=== PATIENT | female | born 1955 | race Caucasian/White ===

== ENCOUNTER 2016-10-10 02:16 | Observation (INO) ==
[2016-10-10] MEDS ORDERED: *HR* Dextrose 50 % in Water (Vial) 50 ML VIAL IVP ONE (02:22)
--- NOTE | 2016-10-10 02:36 | Emergency Department Note ---
Disposition Clinical Impression: Acute metabolic encephalopathy due to hypoglycemia Urinary tract infection Qualifiers: Urinary tract infection type: acute cystitis Hematuria presence: without hematuria Qualified Code(s): N30.00 - Acute cystitis without hematuria Disposition: Home, Self-Care Condition: Good Instructions: Urinary Tract Infection in Women (ED), Diabetic Hypoglycemia (ED) Reasons to Return/Additional Instructions: Follow-up with your primary care provider on Wednesday as discussed. Return to the ED for any new worsening or recurrent symptoms. Blood pressure screening: When you had your blood pressure taken, if the top number was greater than 120 or the bottom number was greater than 80, I discussed and recommended that you call your primary care provider or a physician of your choice this week to arrange follow-up for further evaluation of your blood pressure. Elevated blood pressures which go untreated can lead to stroke, heart attack, kidney failure, and other life-threatening diseases. This is a screening exam and recommednations are to follow with your family physician. (We discussed why the elevation could be occurring at this time. If you have had an EKG and/or x-ray performed in the emergency department, it will be reviewed by the loom doffer and/or radiologist. If the review changes your diagnosis or treatment you will be contacted at the phone number you provided. Prescribed outpatient testing: Please call to schedule an appointment for the test that was ordered on the form provided. If you have been prescribed an antibiotic: Take it as instructed until it is all finished. If you cannot tolerate that medication for some reason, call your physician for replacement. If you had a specimen collected for a culture: A culture report takes 48-72 hours to generate. You will be contacted if a change in treatment is needed. Return to the ED immediately if your condition worsens or if you have severe pain, fever, vomiting, or difficulty breathing or any other concerns. If you received or were prescribed a medication that may cause drowsiness ( Including Tramadol, Phenergan, Diazepam, Lorazepam, Hydroxyzine, Xanax, Hydrocodone, Oxycodone, Codeine, etc) DO NOT drive, drink alcohol, or operate machinery that requires you to be alert for at least 8 hours after taking that medication. If you smoke or chew tobacco products: discuss with your family physician options to help in the cessation in the use of tobacco products. If you do not have a physician: Go to [email or web address] or call [facility]: [phone] [facility]: [phone] [facility]: [phone] Prescriptions: Nitrofurantoin Monohyd/M-Cryst [Macrobid 100 mg Capsule] 100 mg PO BID #14 capsule Referrals: Kim Amin, MIKI [Primary Care Provider] - Forms: ED Satisfaction Letter Time of Disposition: 04:55 Altered Mental Status HPI - General Chief Complaint: ED Altered Mental Status Stated Complaint: AMS Time Seen by Provider: 10/10/16 02:21 Source: patient, family, other (Paramedics) Mode of arrival: EMS - History of Present Illness HPI Narrative: Patient presents to the emergency department secondary to reported mental status change. states that she woke up and advised him that she was not feeling well for her speech was somewhat garbled and she appeared confused. EMS was contacted and upon their arrival the patient's blood sugar was in the 20s, the patient has received oral glucose in route and upon presentation her glucose was 30. She is alert oriented to person place and time. She denies pain or discomfort. She states that she may have not eaten much over the past day though she has recently completed treatment for multiple myeloma and is also recently underwent cardiac stent placement and she states her appetite is starting to improve to some degree. 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 She denies recent medication changes. She denies vomiting or diarrhea. She denies fever or chills. Denies headache or neck pain. Denies abdominal pain. Denies urinary changes. - Related Data Home Medications Medication Instructions Recorded Confirmed Glimepiride [Amaryl] 4 mg PO BID 02/09/15 10/10/16 Gabapentin [Neurontin] 300 mg PO BID 04/07/16 10/10/16 Melatonin [Melatin] 3 mg PO HS PRN 04/07/16 10/10/16 Acyclovir [Zovirax] 400 mg PO BID 08/24/16 10/10/16 Furosemide [Lasix] 40 mg PO QAM 09/27/16 10/10/16 Loperamide [Imodium] 2 mg PO Q4HR PRN MDD 8 TABLETS 09/27/16 10/10/16 Metformin HCl [Glucophage] 1,000 mg PO BID 09/27/16 10/10/16 Ondansetron HCl [Zofran] 4 mg PO Q6H PRN 09/27/16 10/10/16 Previous Rx's Medication Instructions Recorded Apixaban [Eliquis] 5 mg PO BID #60 tab 10/01/16 Aspirin 81 mg PO DAILY #30 tab.chew 10/01/16 Atorvastatin [Lipitor] 80 mg PO HS #60 tablet 10/01/16 Clopidogrel [Plavix] 75 mg PO DAILY #30 tab 10/01/16 Lisinopril [Zestril] 2.5 mg PO DAILY #30 tab 10/01/16 Magnesium 400 mg PO DAILY #60 tablet 10/01/16 Metoprolol XL (24 HR) Succ [Toprol 100 mg PO DAILY #60 tab 10/01/16 XL] Potassium Chloride 20 meq PO BID #60 tab.er.prt 10/01/16 Calcium Carbonate [Calcium] 600 mg PO BID #60 tablet 10/08/16 Calcium Carbonate [Tums] 1 tab PO TID #90 tab.chew 10/08/16 Magnesium Oxide [Magnesium] 400 mg PO TID #90 tablet 10/08/16 Nitrofurantoin Monohyd/M-Cryst 100 mg PO BID #14 capsule 10/10/16 [Macrobid 100 mg Capsule] Allergies Allergy/AdvReac Type Severity Reaction Status Date / Time No Known Allergies Allergy Verified 10/10/16 02:18 Constitutional: Denies: fever Eyes: Denies: vision change ENT ED: Denies: throat pain, dysphagia Cardiovascular: Denies: chest pain, palpitations, dyspnea on exertion, orthopnea , edema Respiratory: Denies: cough Gastrointestinal: Denies: abdominal pain, nausea, vomiting, diarrhea, melena, hematochezia Genitourinary: Denies: urgency, dysuria, frequency Musculoskeletal: Denies: back pain, neck pain Integumentary: Denies: rash Neurological: Denies: headache, weakness, numbness, paresthesias Past Medical History - Past Medical History Medical history: Reports: cancer, coronary artery disease, diabetes, hypertension Surgical history: Reports: other (Recent stem cell transplant for multiple myeloma), arthroscopy Psychiatric history: Reports: anxiety, depression DISPLAY MAKER history: Reports: bilateral tubal ligation - Social History Smoking Status: Current every day smoker Smokeless Tobacco Status: No Alcohol use: Reports: none Drug use: Reports: none Physical Exam - General Limitations: no limitations General appearance: alert, in no apparent distress - Eye Eye exam: Present: normal appearance, PERRL, EOMI. Absent: scleral icterus, conjunctival injection - ENT ENT exam: mucous membranes dry, TM's normal bilaterally - Neck Neck exam: Present: full ROM. Absent: meningismus - Respiratory Respiratory exam: Present: normal lung sounds bilaterally - Cardiovascular Cardiovascular exam: Present: regular rate, normal rhythm, normal heart sounds - Abdominal Exam Abdominal exam: Present: soft, Non-Tender, normal bowel sounds - Extremities Exam Extremities exam: Present: full ROM. Absent: pedal edema, calf tenderness - Expanded Lower Extremity Exam Neurovascular/Tendon exam: Present: normal capillary refill. Absent: pulse deficit - Neurological Exam Neurological exam: Present: alert, oriented X3, CN II-XII intact. Absent: motor sensory deficit - Psychiatric Psychiatric exam: Present: normal affect, normal mood - Skin Skin exam: Present: warm, dry, intact, normal color. Absent: rash Course Vital Signs Temperature 97.6 F 10/10/16 02:25 Pulse Rate 101 10/10/16 02:25 Respiratory Rate 20 10/10/16 02:25 Blood Pressure 108/52 10/10/16 02:25 O2 Sat by Pulse Oximetry 96 10/10/16 02:25 Temperature 97.6 F 10/10/16 02:25 Pulse Rate 89 10/10/16 04:35 Respiratory Rate 18 10/10/16 04:35 Blood Pressure 137/79 10/10/16 04:35 O2 Sat by Pulse Oximetry 98 10/10/16 04:35 Oxygen Delivery Oxygen Delivery Room Air Altered Mental Status - MDM Narrative Medical decision making narrative: Time 4:50 AM: Patient received one amp of D50 upon arrival, she is been monitored for 2-1/2 hours and her blood sugar has remained stable at greater than 140. She is tolerating by mouth quite well. She is asymptomatic at this time. I have discussed her care with her family who is quite well versed in her medical history and very attentive. They relate that the patient had her Amaryl and Glucophage increased when she was undergoing chemotherapy and subsequently taking steroids. These medications had not been decreased. Patient's laboratory evaluation is stable, as is her radiographic findings. She has a normal neurologic exam. Family will be staying with her and is quite competent to monitor her blood sugar and her by mouth intake. At this point they are going to hold her diabetic medications for the next 24 hours and closely monitor her blood sugar and reinitiate treatment if her blood sugar increases. They will then contact the primary care provider on Wednesday to discuss ongoing treatment of her diabetes. - Lab Data Lab results reviewed: Yes I reviewed the patient's lab results. Result diagrams: 10/10/16 02:55 10/10/16 02:55 Lab Results 10/10/16 10/10/16 10/10/16 Range/Units 02:20 02:55 02:55 WBC (4.3-11.1) K/mcL RBC (3.82-4.97) M/mcL Hgb (11.5-15.4) g/dL Hct (35.3-44.9) % MCV (83.0-100.0) fL MCH (28.0-33.3) pg MCHC (31.6-35.5) g/dL RDW (11.5-14.5) % Plt Count (140-400) K/mcL MPV (9.4-12.4) fL Immature Gran % (0-4) % Seg Neutrophils % % Lymphocytes % % Monocytes % % Eosinophils % % Basophils % % Neutrophils # (1.6-8.9) K/mcL Lymphocytes # (0.6-4.6) K/mcL Monocytes # (0.0-1.3) K/mcL Eosinophils # (0.0-0.6) K/mcL Basophils # (0.0-0.2) K/mcL PT 12.5 H (9.4-12.1) Seconds INR 1.2 APTT 36.2 H (26.0-36.0) Seconds Sodium (136-145) mEq/L Potassium (3.5-4.5) mEq/L Chloride (98-109) mEq/L Carbon Dioxide (19-29) mEq/L BUN (7-20) mg/dL Creatinine (0.57-1.11) mg/dL Est GFR ( Amer) (> 60) Est GFR (Non-Af Amer) (> 60) BUN/Creatinine Ratio (6-26) Glucose (70-99) mg/dL POC Glucose 41 L* (58-89) Calculated Osmolality (280-300) Calcium (8.6-10.8) mg/dL Magnesium (1.6-2.6) mg/dL Total Bilirubin 0.3 (0.2-1.2) mg/dL Direct Bilirubin 0.1 (0.0-0.5) mg/dL Indirect Bilirubin 0.2 (0.0-1.2) mg/dL AST 23 (5-34) Units/L ALT 13 (0-55) Units/L Alkaline Phosphatase 84 (38-126) Units/L Troponin I (0-0.03) ng/mL Serum Total Protein 5.6 L (6.0-8.3) g/dL Albumin 2.6 L (3.5-5.0) g/dL Globulin 3.0 (2.4-3.5) g/dL Albumin/Globulin Ratio 0.9 L (1.1-2.2) Lipase 38 (8-78) Units/L Urine Color (Yellow) Urine Clarity (Clear) Urine pH (5.0-8.0) pH Units Ur Specific [place] (1.010-1.025) Urine Protein (Neg-Trace) mg/dL Urine Glucose (UA) (Normal) mg/dL Urine Ketones (Negative) mg/dL Urine Blood (Negative) Urine Nitrite (Negative) Urine Bilirubin (Negative) Urine Urobilinogen (Normal) mg/dL Ur Leukocyte Esterase (Negative) Urine Microscopic RBC (0-3) per hpf Urine Microscopic WBC (0-3) per hpf Ur Squamous Epith Cells (None-Few) per lpf Urine Bacteria (None-Few) per hpf Ur Culture Indicated? (NO) 10/10/16 10/10/16 10/10/16 Range/Units 02:55 02:55 02:55 WBC 10.2 D (4.3-11.1) K/mcL RBC 2.90 L (3.82-4.97) M/mcL Hgb 9.6 L (11.5-15.4) g/dL Hct 27.7 L (35.3-44.9) % MCV 95.5 (83.0-100.0) fL MCH 33.1 (28.0-33.3) pg MCHC 34.7 (31.6-35.5) g/dL RDW 19.3 H (11.5-14.5) % Plt Count 155 (140-400) K/mcL MPV 9.7 (9.4-12.4) fL Immature Gran % 0.5 (0-4) % Seg Neutrophils % 89.9 % Lymphocytes % 2.6 % Monocytes % 6.7 % Eosinophils % 0.2 % Basophils % 0.1 % Neutrophils # 9.2 H (1.6-8.9) K/mcL Lymphocytes # 0.3 L (0.6-4.6) K/mcL Monocytes # 0.7 (0.0-1.3) K/mcL Eosinophils # 0.0 (0.0-0.6) K/mcL Basophils # 0.0 (0.0-0.2) K/mcL PT (9.4-12.1) Seconds INR APTT (26.0-36.0) Seconds Sodium 136 (136-145) mEq/L Potassium 3.5 (3.5-4.5) mEq/L Chloride 103 (98-109) mEq/L Carbon Dioxide 21 (19-29) mEq/L BUN 12 (7-20) mg/dL Creatinine 0.63 (0.57-1.11) mg/dL Est GFR ( Amer) > 60 (> 60) Est GFR (Non-Af Amer) > 60 (> 60) BUN/Creatinine Ratio 19 (6-26) Glucose 143 H (70-99) mg/dL POC Glucose (58-89) Calculated Osmolality 284 (280-300) Calcium 9.7 (8.6-10.8) mg/dL Magnesium (1.6-2.6) mg/dL Total Bilirubin (0.2-1.2) mg/dL Direct Bilirubin (0.0-0.5) mg/dL Indirect Bilirubin (0.0-1.2) mg/dL AST (5-34) Units/L ALT (0-55) Units/L Alkaline Phosphatase (38-126) Units/L Troponin I 0.02 (0-0.03) ng/mL Serum Total Protein (6.0-8.3) g/dL Albumin (3.5-5.0) g/dL Globulin (2.4-3.5) g/dL Albumin/Globulin Ratio (1.1-2.2) Lipase (8-78) Units/L Urine Color (Yellow) Urine Clarity (Clear) Urine pH (5.0-8.0) pH Units Ur Specific [place] (1.010-1.025) Urine Protein (Neg-Trace) mg/dL Urine Glucose (UA) (Normal) mg/dL Urine Ketones (Negative) mg/dL Urine Blood (Negative) Urine Nitrite (Negative) Urine Bilirubin (Negative) Urine Urobilinogen (Normal) mg/dL Ur Leukocyte Esterase (Negative) Urine Microscopic RBC (0-3) per hpf Urine Microscopic WBC (0-3) per hpf Ur Squamous Epith Cells (None-Few) per lpf Urine Bacteria (None-Few) per hpf Ur Culture Indicated? (NO) 10/10/16 10/10/16 Range/Units 02:55 04:25 WBC (4.3-11.1) K/mcL RBC (3.82-4.97) M/mcL Hgb (11.5-15.4) g/dL Hct (35.3-44.9) % MCV (83.0-100.0) fL MCH (28.0-33.3) pg MCHC (31.6-35.5) g/dL RDW (11.5-14.5) % Plt Count (140-400) K/mcL MPV (9.4-12.4) fL Immature Gran % (0-4) % Seg Neutrophils % % Lymphocytes % % Monocytes % % Eosinophils % % Basophils % % Neutrophils # (1.6-8.9) K/mcL Lymphocytes # (0.6-4.6) K/mcL Monocytes # (0.0-1.3) K/mcL Eosinophils # (0.0-0.6) K/mcL Basophils # (0.0-0.2) K/mcL PT (9.4-12.1) Seconds INR APTT (26.0-36.0) Seconds Sodium (136-145) mEq/L Potassium (3.5-4.5) mEq/L Chloride (98-109) mEq/L Carbon Dioxide (19-29) mEq/L BUN (7-20) mg/dL Creatinine (0.57-1.11) mg/dL Est GFR ( Amer) (> 60) Est GFR (Non-Af Amer) (> 60) BUN/Creatinine Ratio (6-26) Glucose (70-99) mg/dL POC Glucose (58-89) Calculated Osmolality (280-300) Calcium (8.6-10.8) mg/dL Magnesium 1.0 L (1.6-2.6) mg/dL Total Bilirubin (0.2-1.2) mg/dL Direct Bilirubin (0.0-0.5) mg/dL Indirect Bilirubin (0.0-1.2) mg/dL AST (5-34) Units/L ALT (0-55) Units/L Alkaline Phosphatase (38-126) Units/L Troponin I (0-0.03) ng/mL Serum Total Protein (6.0-8.3) g/dL Albumin (3.5-5.0) g/dL Globulin (2.4-3.5) g/dL Albumin/Globulin Ratio (1.1-2.2) Lipase (8-78) Units/L Urine Color Yellow (Yellow) Urine Clarity Slightly Cloudy A (Clear) Urine pH 6.0 (5.0-8.0) pH Units Ur Specific [place] 1.015 (1.010-1.025) Urine Protein 100 H (Neg-Trace) mg/dL Urine Glucose (UA) Normal (Normal) mg/dL Urine Ketones Negative (Negative) mg/dL Urine Blood Small H (Negative) Urine Nitrite Negative (Negative) Urine Bilirubin Negative (Negative) Urine Urobilinogen Normal (Normal) mg/dL Ur Leukocyte Esterase Small H (Negative) Urine Microscopic RBC 0-3 (0-3) per hpf Urine Microscopic WBC 30-50 H (0-3) per hpf Ur Squamous Epith Cells Few (None-Few) per lpf Urine Bacteria Few (None-Few) per hpf Ur Culture Indicated? YES A (NO) ITS Impressions Chest X-Ray 10/10/16 02:21 IMPRESSION: No acute cardiopulmonary disease. D/ / Vaughn Eduardo MD / Vaughn Eduardo MD Interpreting Provider: Vaughn Eduardo MD Head CT 10/10/16 02:38 IMPRESSION: No acute intracranial abnormality. Right falcine meningioma. D/ / Ajay Alvarez MD / Ajay Alvarez MD Interpreting Provider: Ajay Alvarez MD - Radiology Data Radiology results reviewed: Yes I reviewed the patient's radiology results. - EKG Data EKG attestation: Yes I reviewed and interpreted this EKG. EKG shows normal: sinus rhythm (Normal sinus rhythm with a rate of 99. Nonspecific changes without evidence of acute ST segment or T-wave changes.) TPA Checklist - LKW: 3-4.5 hrs Add. Warnings/Precautions Patient/family understanding: The patient/family members have been counseled and understood the risk, benefit , and alternatives of treatment.
[2016-10-10 03:05] LABS: Basophils % 0.1 %; Eosinophils % 0.2 %; Hematocrit 27.7 % (35.3-44.9); Hemoglobin 9.6 g/dL (11.5-15.4); Immature Granulocytes % 0.5 % (0-4); Lymphocytes # 0.3 K/mcL (0.6-4.6); Lymphocytes % 2.6 %; Mean Corpuscular HGB Conc 34.7 g/dL (31.6-35.5); Mean Corpuscular Hemoglobin 33.1 pg (28.0-33.3); Mean Corpuscular Volume 95.5 fL (83.0-100.0); Mean Platelet Volume 9.7 fL (9.4-12.4); Monocytes # 0.7 K/mcL (0.0-1.3); Monocytes % 6.7 %; Neutrophils # 9.2 K/mcL (1.6-8.9); Platelet Count 155 K/mcL (140-400); Red Cell Distribution Width 19.3 % (11.5-14.5); Segmented Neutrophils % 89.9 %
[2016-10-10 03:09] LABS: INR 1.2; Prothrombin Time 12.5 Seconds (9.4-12.1)
[2016-10-10 03:11] LABS: Activated Partial Thrombo Time 36.2 Seconds (26.0-36.0)
[2016-10-10 03:19] LABS: BUN/Creatinine Ratio 19 (6-26); Blood Urea Nitrogen 12 mg/dL (7-20); Calcium 9.7 mg/dL (8.6-10.8); Carbon Dioxide 21 mEq/L (19-29); Chloride 103 mEq/L (98-109); Glucose 143 mg/dL (70-99); Osmolality,Calculated 284 (280-300); Potassium 3.5 mEq/L (3.5-4.5); Sodium 136 mEq/L (136-145); eGFR For African Americans > 60 (> 60); eGFR For Non-African Americans > 60 (> 60)
[2016-10-10 03:22] LABS: Albumin 2.6 g/dL (3.5-5.0); Albumin/Globulin Ratio 0.9 (1.1-2.2); Bilirubin,Direct 0.1 mg/dL (0.0-0.5); Bilirubin,Indirect 0.2 mg/dL (0.0-1.2); Bilirubin,Total 0.3 mg/dL (0.2-1.2); Total Protein 5.6 g/dL (6.0-8.3)
[2016-10-10 04:34] LABS: Bilirubin,Urine Negative (Negative); Blood,Urine Small (Negative); Clarity,Urine Slightly Cloudy (Clear); Color,Urine Yellow (Yellow); Glucose,Urine (UA) Normal (Normal); Ketones,Urine Negative (Negative); Leukocyte Esterase,Urine Small (Negative); Nitrite,Urine Negative (Negative); Protein,Urine 100 mg/dL (Neg-Trace); Specific Gravity,Urine 1.015 (1.010-1.025); Urobilinogen,Urine Normal (Normal)
[2016-10-10 04:36] LABS: Bacteria,Urine Few per hpf (None-Few); RBC,Urine 0-3 per hpf (0-3); Squamous Epithelial Cell,Urine Few per lpf (None-Few); WBC,Urine 30-50 per hpf (0-3)
[2016-10-10] MEDS ORDERED: Nitrofurantoin (BID) 100 MG CAPSULE PO ONE (04:47)
[2016-10-10] MEDS ORDERED: Prochlorperazine 10 MG/2 ML VIAL IVP ONE (05:53)
[2016-10-10] MEDS ORDERED: Naloxone 0.4 MG/ML INJ IVP PRN (05:55)
[2016-10-10] MEDS ORDERED: D5% in 0.45% NACL 1,000 ML IVC SCH ×3 (06:00)
[2016-10-10] MEDS ORDERED: Ondansetron ODT 4 MG TAB.RAPDIS PO PRN (06:00)
[2016-10-10] MEDS ORDERED: APIXABAN 5 MG TABLET PO SCH (09:00)
[2016-10-10] MEDS ORDERED: Gabapentin 300 MG CAPSULE PO SCH (09:00)
[2016-10-10] MEDS ORDERED: Aspirin 81 MG TAB.CHEW PO SCH (09:00)
[2016-10-10] MEDS ORDERED: Furosemide 40 MG TABLET PO SCH (09:00)
[2016-10-10] MEDS ORDERED: Magnesium Oxide 400 MG TABLET PO SCH ×2 (09:00)
[2016-10-10] MEDS ORDERED: Acyclovir 200 MG CAPSULE PO SCH (09:30)
--- NOTE | 2016-10-10 10:07 | Internal Med History&Physical ---
Date of Encounter: 10/10/16 Time of Encounter: 10:03 Assessment and Plan (1) Hypoglycemia secondary to sulfonylurea Current visit: Yes Status: Acute Pt with ALLISON-induced hypoglycemia which appears resolved this AM, approximately 18 hours after last ALLISON dose at home. Will d/c D5 IV fluids and monitor FSBG q2h for additional 6 hours. If hypoglycemia remains resolved, will d/c home later today. Patient is to remain off ALLISON at home, but is to resume her metformin as previously prescribed. Qualifiers: Encounter type: initial encounter Injury intent: accidental or unintentional Qualified Code(s): T38.3X1A - Poisoning by insulin and oral hypoglycemic [antidiabetic] drugs, accidental (unintentional), initial encounter ; E16.0 - Drug-induced hypoglycemia without coma (2) Urinary tract infection Current visit: Yes Status: Acute Asymptomatic this AM. Will monitor on oral antibiotic. Urine culture pending. Qualifiers: Urinary tract infection type: acute cystitis Hematuria presence: without hematuria Qualified Code(s): N30.00 - Acute cystitis without hematuria Internal Medicine - H&P: HPI Chief complaint: AMS Admitted From: Emergency Dept Plans for Post Hospital Care: Home History of present illness: Ms. Segura is a 61 year old female with multiple medical comorbidities that was transferred from home to ED via EMS for AMS secondary to FSBG in 20s. Patient had recently increased her glimiperide to 4mg twice daily and took last dose at approx 1700 on 10/09/16 which was followed hours later by sweating, confusion, and shaking associated with blood glucose in 20s. She was transported to ED. ED work-up was at baseline outside of hypoglycemia and UTI. Patient's AMS resolved with treatment of hypoglycemia in ED. Because her FSBG readings continued to drop intermittently, she was admitted to the med-surg unit for ongoing treatment and monitoring of her hypoglycemia. Past Med Surg Social Fam HX - Past Medical History Medical history: cancer, coronary artery disease, diabetes, hypertension Psychiatric history: anxiety, depression - Past Surgical History Surgical History: other (Recent stem cell transplant for multiple myeloma), arthroscopy - Social History Smoking Status: Current every day smoker Smokeless Tobacco Status: No Alcohol use: none Drug use: none Internal Medicine - H&P: Meds Glimepiride [Amaryl] 4 mg PO BID 02/09/15 [History] Gabapentin [Neurontin] 300 mg PO BID 04/07/16 [History] Melatonin [Melatin] 3 mg PO HS PRN 04/07/16 [History] Acyclovir [Zovirax] 400 mg PO BID 08/24/16 [History] Furosemide [Lasix] 40 mg PO QAM 09/27/16 [History] Loperamide [Imodium] 2 mg PO Q4HR PRN MDD 8 TABLETS 09/27/16 [History] Metformin HCl [Glucophage] 1,000 mg PO BID 09/27/16 [History] Ondansetron HCl [Zofran] 4 mg PO Q6H PRN 09/27/16 [History] Apixaban [Eliquis] 5 mg PO BID #60 tab 10/01/16 [Rx] Aspirin 81 mg PO DAILY #30 tab.chew 10/01/16 [Rx] Atorvastatin [Lipitor] 80 mg PO HS #60 tablet 10/01/16 [Rx] Clopidogrel [Plavix] 75 mg PO DAILY #30 tab 10/01/16 [Rx] Lisinopril [Zestril] 2.5 mg PO DAILY #30 tab 10/01/16 [Rx] Magnesium 400 mg PO DAILY #60 tablet 10/01/16 [Rx] Metoprolol XL (24 HR) Succ [Toprol XL] 100 mg PO DAILY #60 tab 10/01/16 [Rx] Potassium Chloride 20 meq PO BID #60 tab.er.prt 10/01/16 [Rx] Calcium Carbonate [Calcium] 600 mg PO BID #60 tablet 10/08/16 [Rx] Calcium Carbonate [Tums] 1 tab PO TID #90 tab.chew 10/08/16 [Rx] Magnesium Oxide [Magnesium] 400 mg PO TID #90 tablet 10/08/16 [Rx] Nitrofurantoin Monohyd/M-Cryst [Macrobid 100 mg Capsule] 100 mg PO BID #14 capsule 10/10/16 [Rx] Allergies No Known Allergies Allergy (Verified 10/10/16 02:18) All Systems PM: A 10-system review of systems was performed and is negative for pertinent findings except as documented above in the HPI. - Gastrointestinal Gastrointestinal: diarrhea - Constitutional Vitals: Temp Pulse Resp BP Pulse Ox 98.6 F 111 20 118/68 97 10/10/16 06:39 10/10/16 09:11 10/10/16 06:39 10/10/16 09:11 10/10/16 09:11 Exam: Gen: Lying in bed, NAD HEENT: NC, AT Neck: Trachea midline, no mass Pulm: No respiratory distress, CTAB CV: Normal S1 and S2, RRR Abdomen: Soft, ND, NT Ext: No C/C/E Neuro: No appreciable motor/sensor deficits Skin: Warm and dry, no rash Psych: A&Ox3 Internal Med - H&P Results - Labs CBC & Chem 7: 10/10/16 02:55 10/10/16 02:55
--- NOTE | 2016-10-10 10:17 | Discharge Summary ---
Date of Encounter: 10/10/16 Time of Encounter: 10:13 - Discharge Diagnosis (1) Hypoglycemia secondary to sulfonylurea Priority: Primary Status: Resolved Qualifiers: Encounter type: initial encounter Injury intent: accidental or unintentional Qualified Code(s): T38.3X1A - Poisoning by insulin and oral hypoglycemic [antidiabetic] drugs, accidental (unintentional), initial encounter ; E16.0 - Drug-induced hypoglycemia without coma (2) Acute metabolic encephalopathy due to hypoglycemia Priority: Secondary Status: Resolved (3) Urinary tract infection Priority: Secondary Status: Acute Qualifiers: Urinary tract infection type: acute cystitis Hematuria presence: without hematuria Qualified Code(s): N30.00 - Acute cystitis without hematuria - Discharge Medications Prescriptions: Sulfamethoxazole/Trimeth DS [Bactrim DS] 1 each PO BID #14 tablet Home Medications: Gabapentin [Neurontin] 300 mg PO BID 04/07/16 [History] Melatonin [Melatin] 3 mg PO HS PRN 04/07/16 [History] Acyclovir [Zovirax] 400 mg PO BID 08/24/16 [History] Furosemide [Lasix] 40 mg PO QAM 09/27/16 [History] Loperamide [Imodium] 2 mg PO Q4HR PRN MDD 8 TABLETS 09/27/16 [History] Metformin HCl [Glucophage] 1,000 mg PO BID 09/27/16 [History] Ondansetron HCl [Zofran] 4 mg PO Q6H PRN 09/27/16 [History] Apixaban [Eliquis] 5 mg PO BID #60 tab 10/01/16 [Rx] Aspirin 81 mg PO DAILY #30 tab.chew 10/01/16 [Rx] Atorvastatin [Lipitor] 80 mg PO HS #60 tablet 10/01/16 [Rx] Clopidogrel [Plavix] 75 mg PO DAILY #30 tab 10/01/16 [Rx] Lisinopril [Zestril] 2.5 mg PO DAILY #30 tab 10/01/16 [Rx] Magnesium 400 mg PO DAILY #60 tablet 10/01/16 [Rx] Metoprolol XL (24 HR) Succ [Toprol Xl] 100 mg PO DAILY #60 tab 10/01/16 [Rx] Potassium Chloride 20 meq PO BID #60 tab.er.prt 10/01/16 [Rx] Calcium Carbonate [Calcium] 600 mg PO BID #60 tablet 10/08/16 [Rx] Calcium Carbonate [Tums] 1 tab PO TID #90 tab.chew 10/08/16 [Rx] Magnesium Oxide [Magnesium] 400 mg PO TID #90 tablet 10/08/16 [Rx] Sulfamethoxazole/Trimeth DS [Bactrim DS] 1 each PO BID #14 tablet 10/10/16 [Rx] Allergies/Adverse Reactions: Allergies No Known Allergies Allergy (Verified 10/10/16 02:18) - Notes to Outpatient Provider A urine culture and C. diff stool test were pending at time of discharge. Date of admission: 10/10/16 06:19 Primary care physician: Kim Amin CNP Consults: None Discharging clinician: Karson Rodriguez Anticipated date of discharge: 10/10/16 - Patient Status Disposition: Home, Self-Care Condition: Good Functional capacity at discharge: independent ambulation Overall status at discharge: patient is back to baseline - Discharge Instructions Follow Up With: Kim Amin CNP [Primary Care Provider] - 1 week - Diet and Activity Activity: increase activity as tolerated Diet: advance to your usual diet Interval History: Pt is doing well this AM upon evaluation. No further hypoglycemia. Pt is tolerating PO and feels well. Pt is eager for discharge home today. No events overnight. Hospital course: Ms. Segura is a 61 year old female admitted through the emergency department for sulfonylurea-induced hypoglycemia. Her ALLISON was held and she was placed on D5 IV fluids. All hypoglycemia has resolved. Dextrose IV fluids will be stopped this AM and patient will be monitored for an additional 6 hours. If patient remains without hypoglycema, she will be discharged home today. Her ALLISON will be held at home and she will be given a 7 day bactrim course for an acute cystitis. Patient has been asked to call PCP in 3-4 days to notify of [facility]SB[facility] readings on metformin alone. - Time Spent with Patient Total time spent providing and/or coordinating discharge services: Less than 30 minutes - Constitutional Vitals: Temp Pulse Resp BP Pulse Ox 98.6 F 111 20 118/68 97 10/10/16 06:39 10/10/16 09:11 10/10/16 06:39 10/10/16 09:11 10/10/16 09:11 Exam: Gen: Lying in bed, NAD HEENT: NC, AT Neck: Trachea midline, no mass Pulm: No respiratory distress, CTAB CV: Normal S1 and S2, RRR Abdomen: Soft, ND, NT Ext: No C/C/E Neuro: No appreciable motor/sensor deficits Skin: Warm and dry, no rash Psych: A&Ox3
[2016-10-10 13:26] VITALS: BP 105/55
[2016-10-10] MEDS ORDERED: *HR* Metformin 500 MG TABLET PO STA (13:32)
--- NOTE | 2016-10-12 13:07 | Electrocardiograph Report ---
[address] [place], [place] [address] Test Date: 2016-10-10 Pat Name: Regina Segura Department: [id number] Room: [facility] Gender: F Rn Anesthesiology: [place] : 1955 Requested By: Delio Messer Order Number: [id number] Reading MD: Emil Greco MD Measurements Intervals [place] Rate: 99 P: 19 IN: 199 QRS: 51 QRSD: 84 T: 48 QT: 350 QTc: 407 Interpretive Statements SINUS RHYTHM ANTEROSEPTAL MYOCARDIAL INFARCTION, OF INDETERMINATE AGE Electronically Signed On 10-12-2016 13:05:47 EDT by Emil Greco MD
== END 2016-10-10 15:30 | disposition home or self-care (01) ==
LOC: INPPIK 02:16 → EMEROOPIK 02:16 → INPPIK 06:39
PROVIDERS: ADMIT Internal Medicine; ATTEND Internal Medicine